=== PATIENT | female | born 1990 | race Caucasian/White ===

== ENCOUNTER 2016-12-22 08:35 | Emergency (ER) | payer MEDICAID, OTHER ==
[2016-12-22 08:39] VITALS: BMI 25.0
[2016-12-22 08:40] VITALS: BP 112/63; PULSE 98; TEMP 98.4; O2SAT 100
[2016-12-22 09:26] VITALS: RESP 18
--- NOTE | 2016-12-22 10:01 | C.PDOC ---
History Of Present Illness 26 y/o female, , 28 weeks gestation, presents to the ED for evaluation of intermittent mid-sternal chest pressure, and heaviness for the past week. Pt reports associated mild headache. Otherwise, denies any fever, shortness of breath, abdominal pain, vaginal bleeding, leakage of fluids, or any other associated symptoms at this time. (+) movement. Time Seen by Provider: 12/22/16 08:57 Chief Complaint (Nursing): Chest Pain History Per: Patient History/Exam Limitations: no limitations Onset/Duration Of Symptoms: Days (1 week) Current Symptoms Are (Timing): Still Present Quality: Tightness, Pressure Associated Symptoms: denies: Nausea, Dyspnea, Diaphoresis, Syncope Modifying Factors: None Exacerbating Factors: None Alleviating Factors: None Recent travel outside of the [place]: No Additional History Per: Patient Past Medical History Reviewed: Historical Data, Nursing Documentation, Vital Signs Vital Signs: Last Vital Signs Temp 98.4 F 12/22/16 08:39 Pulse 98 H 12/22/16 08:39 Resp 18 12/22/16 09:05 BP 112/63 12/22/16 08:39 Pulse Ox 100 12/22/16 10:16 - [facility] Procedures DELIVERY OF PRODUCTS OF CONCEPTION, EXTERNAL APPROACH (06/20/15) DRAINAGE OF AMNIOTIC FL, THERAP FROM POC, VIA OPENING (06/20/15) MONITORING OF POC, CARDIAC RATE, [employer] APPROACH (06/20/15) REPAIR VAGINA, EXTERNAL APPROACH (06/20/15) Family History: States: Unknown Family Hx - Social History Hx Tobacco Use: No Hx Alcohol Use: No Hx Substance Use: No - Immunization History Hx Tetanus Toxoid Vaccination: No Hx Influenza Vaccination: No Hx Pneumococcal Vaccination: No Review Of Systems Except As Marked, All Systems Reviewed And Found Negative. Constitutional: Negative for: Fever, Chills Cardiovascular: Positive for: Chest Pain. Negative for: Palpitations, Light Headedness Respiratory: Negative for: Cough, Shortness of Breath Gastrointestinal: Negative for: Nausea, Vomiting, Abdominal Pain Genitourinary: Negative for: Vaginal Discharge, Vaginal Bleeding, Pelvic Pain Skin: Negative for: Rash Neurological: Positive for: Headache (mild). Negative for: Weakness, Numbness, Dizziness Physical Exam - Physical Exam Appears: Non-toxic, No Acute Distress Skin: Normal Color, Warm, Dry Head: Atraumatic, Normacephalic Eye(s): bilateral: Normal Inspection, EOMI Neck: Supple Chest: Symmetrical, No Deformity, No Tenderness Cardiovascular: Rhythm Regular, No Murmur Respiratory: Normal Breath Sounds, No Accessory Muscle Use, No Rales, No Rhonchi , No Wheezing, Other (Speaking in full sentences) Gastrointestinal/Abdominal: Soft, No Tenderness, Other (gravid abdomen) Neurological/Psych: Oriented x3, Normal Speech, Normal Cognition, Other (Neuro intact) ED Course And Treatment ECG: Interpreted By Me, Viewed By Me ECG Rhythm: Sinus Rhythm ECG Interpretation: No Acute Changes Interpretation Of ECG: No ST wave changes. Rate From EC (bpm) O2 Sat by Pulse Oximetry: 100 (RA) Pulse Ox Interpretation: Normal Medical Decision Making Medical Decision Making: Suggested patient to have CXR and labs, possible chest CT scan to rule out PE, suspicion for PE is low but not entirely ruled out. pt in er, states "all i wanted was an ekg". Pt declined any imaging studies and labs. and signed AMA. The patient declines imaging studies as recommended for medical evaluation. This action is against my medical advice to the patient and with informed refusal. The patient was told that this evaluation is necessary and a full explanation of the rationale was given. The risks of refusing were explained to the patient and include, but are not limited to, worsening of known or currently unknown conditions, permanent disability and from undiagnosed or untreated conditions. The patient has the capacity to make this decision and has the capacity to understand the clinical situation and my explanation of the risks of refusing this test. The patient voluntarily accepts these risks. The patient was given the opportunity to ask questions and reconsider. Disposition - Disposition Disposition: AGAINST MEDICAL ADVICE Disposition Time: 10:00 (3) Condition: UNKNOWN Additional Instructions: please follow up with your pmd or return to er with worsening symptoms or concerns. Instructions: Chest Pain (ED), Against Medical Advice (ED) Forms: [employer] (Indonesian) - Clinical Impression Clinical Impression: Chest pain - Scribe Statement The provider has reviewed the documentation as recorded by the Scribe Sandeep Mcneil All medical record entries made by the Scribe were at my direction and personally dictated by me. I have reviewed the chart and agree that the record accurately reflects my personal performance of the history, physical exam, medical decision making, and the department course for this patient. I have also personally directed, reviewed, and agree with the discharge instructions and disposition.
--- NOTE | 2016-12-25 15:06 | CARD ---
APPROVED REPORT EKG Measurement Heart [id number] <Conclusion> Normal sinus rhythm Normal ECG
== END 2016-12-22 09:05 | disposition left against medical advice (07) ==
LOC: C.ER 08:35
DX: O26.893 Other specified pregnancy related conditions, third trimester (principal); Z3A.28 28 weeks gestation of pregnancy; R07.9 Chest pain, unspecified